=== PATIENT | male | born 1965 | race Caucasian/White ===

== ENCOUNTER 2018-04-15 08:37 | Inpatient (IN) ==
--- NOTE | 2018-04-15 09:02 | Anesthesia Evaluation PreOp ---
Date of Encounter: 04/15/18 Time of Encounter: 09:00 - Past History Planned Operation: left thoracotomy with LLLobectomy Cardiac History: Denies any Significant Hx Pulmonary History: Denies Any Significant HX GEOSPATIAL SCIENTIST History: Other (chemo induced neuropathy) Other Medical History: Other (metatstatic colon cancer) Anesthesia History: No Prior Anesthetic Complications, Past Anesthesia (oral sx, cleft lip repair, right SANTANA, Hydrocele repair, colon resection, colostomy reversal, LLL wedge resection) Alcohol Use: rarely Drug use: none Medications and Allergies Allergy/AdvReac Type Severity Reaction Status Date / Time No Known Allergies Allergy Verified 04/15/18 09:07 - Meds/Allergy Pre-op Review Medications Reviewed: Yes Allergies Reviewed: Yes Beta Blockers on Current Med List: No Anesthesia Results - Labs Laboratory Tests 03/12/18 03/12/18 09:33 09:33 Hgb 14.0 Hct 41.8 Plt Count 195 Sodium 137 Potassium 4.1 BUN 15 Creatinine 0.93 - Imaging Additional studies: PET scan: IMPRESSION: Left hilar/infrahilar mass is hypermetabolic, concerning for lung malignancy. No gross findings of metastatic disease. Moderate activity about the margin of orthopedic hardware within the proximal right femur, likely inflammatory in the absence of clinical signs or symptoms of infection. [facility]: normal lung volumes, normal spirometry, no post bronchodilator response, normal diffusion capacity Anesthesia Exam Weight: 112kg NPO (# of Hours): 8 - HEENT Pupil (Motor): EOMI Mallampati: II Teeth: Normal Oral Opening: Greater than 3 (has upper lip minimal deformity from clet lip sx) - GEOSPATIAL SCIENTIST LOC: Oriented GEOSPATIAL SCIENTIST Motor: Normal RUE, Normal LUE, Normal RLE, Normal LLE, Normal Face GEOSPATIAL SCIENTIST Sensory: Normal: RUE, LUE, RLE, LLE, Face - Cardiac Rhythm: Regular Murmur: None - Pulmonary Breath Sounds: bilateral Clear Respiratory Effort: Symmetrical Anesthesia Assess/Plan ASA Score: 3 Level of consciousness: Cooperative, Oriented, Tranquil Anesthetic Plan: General Monitoring Plan: Standard Monitors Recovery Plan: PACU (agrees to GA)
[2018-04-15] MEDS ORDERED: Gabapentin 300 MG CAPSULE PO ONE (09:14)
[2018-04-15] MEDS ORDERED: Celecoxib 100 MG CAPSULE PO SCH (09:15)
[2018-04-15] MEDS ORDERED: CeFAZolin Syr 2,000MG/20 ML 2,000 MG/20 ML SYRINGE IVPB ONE (09:23)
[2018-04-15] MEDS ORDERED: Ringers Solution, Lactated 1,000 ML IVC SCH (09:30)
--- NOTE | 2018-04-15 09:51 | History & Physical Report ---
Date of Encounter: 04/15/18 Time of Encounter: 09:50 24 Hour HP Update - Instructions Instructions: If the History and Physical is less than 30 days old and was completed prior to A.M. admission and or procedure and has NOT been updated on calendar day of procedure please complete this update prior to performing procedure. - Update Patient reports changes in Medical Condition: No Changes in examination, assessment, or condition: No Changes in Medication: No Preop tests/diagnostics Reviewed: Yes Pre-Op MRSA Screen: Negative Surgery Remains Indicated: Yes Consent for Planned Operative Procedure(s) Verified: Yes - Pre-Operative Checklist Preoperative Checklist Indicated: Yes Prophylactic Antibiotic Ordered: Yes Home Medications Include Beta Pat: Yes Beta Pat Taken Today (Day of Surgery): No Beta Pat Taken Yesterday (Day Prior to Surgery): No Is VTE Prophylaxis Indicated?: Yes (knee high)
--- NOTE | 2018-04-15 13:13 | Operative Note ---
Date of procedure: 04/15/18 Pre-op diagnosis: metastatic colon cancer to the left lung Post-op diagnosis: same Procedure: bronchoscopy, left thoracotomy pneumonectomy, mediastinal lymph node dissection Complications: none Anesthesia: GETA Local Anesthetics: 0.5% Sensorcaine HCL SubQ (cc) Surgeon: Jose Perea Was there an assistant sales manager present: No Estimated blood loss (cc): 150 Specimen: left lung, node 10 Condition: stable Disposition: ICU Procedure in Detail: The patient was brought to the operating room and placed on the operating room table in the supine position. After undergoing general anesthesia a diagnostic bronchoscopy was performed by me and patient for the first time for his recurrent metastatic colon cancer to the left lung. There appeared to be membranous tracheal involvement at the left lower lobe bronchus. Patient was then placed on the operating room table in the right lateral decubitus position with care to pad all pressure points. Perioperative antibiotics and venous thrombosis prophylaxis performed. A muscle sparing thoracotomy was performed. There were dense adhesions within the chest from his previous operation. These were taken down with the Bovie cautery. The hilum was mobilized. The large metastatic mass was invading the left lower lobe vein as well as the distal left mainstem bronchus. The upper lobe vein, main pulmonary artery, lower lobe vein were taken in sequence with the stapler. The hilum was fully mobilized and a stapler fired across the proximal left mainstem bronchus after removing the endotracheal tube into the distal trachea. Lymph node dissection was performed, para paravertebral nerve blocks performed, and a 28-Azerbaijani chest tube placed. The intercostal space closed with #1 Vicryl the ausculatory triangle closed with #1 Vicryl a flat Jerome-Franco drain placed through a separate skin incision is placed between the 2 muscle bellies. Secured into place with a 2-0 silk suture. The latissimus dorsi muscle was tacked to the deep dermis with a 0 Vicryl, superficial dermis closed with 0 Vicryl, skin closed with a 4-0 Monocryl subcuticular stitch. Sterile dressings were applied. The patient was extubated and taken to the intensive care unit.
[2018-04-15] MEDS ORDERED: *HR* HYDROmorphone 2 MG/ML SYRINGE IVP ONE ×2 (13:24→13:36)
[2018-04-15] MEDS ORDERED: *HR* HYDROmorphone 20 MG/20 ML PCA IVC SCH (13:36)
[2018-04-15] MEDS ORDERED: Naloxone 0.4 MG/ML INJ IVP PRN ×2 (13:36)
[2018-04-15] MEDS: 0.9 % Sodium Chloride 1,000 ML IVC SCH (13:47)
[2018-04-15] MEDS ORDERED: Gabapentin 300 MG CAPSULE PO SCH (15:00)
[2018-04-15] MEDS: Gabapentin 300 MG CAPSULE PO SCH ×2 (15:55→20:12)
[2018-04-15] MEDS: Albuterol 2.5 MG/3 ML NEBULIZER IH SCH ×2 (16:22→19:40)
[2018-04-15] MEDS ORDERED: Ondansetron 4 MG/2 ML VIAL IVP PRN (16:44)
[2018-04-15] MEDS: Ketorolac 15 MG/ML VIAL IVP SCH ×2 (17:58→23:11)
[2018-04-15] MEDS: Metoprolol XL (24 HR) Succ 25 MG TAB.ER.24H PO SCH (18:02)
[2018-04-16] MEDS: Albuterol 2.5 MG/3 ML NEBULIZER IH SCH ×7 (00:25→23:20)
[2018-04-16] MEDS: 0.9 % Sodium Chloride 1,000 ML IVC SCH ×2 (02:56→15:35)
[2018-04-16 04:34] LABS: Basophils % 0.1 %; Hematocrit 37.4 % (37.5-50.1); Hemoglobin 12.4 g/dL (12.9-16.9); Immature Granulocytes % 0.4 % (0-4); Lymphocytes # 0.8 K/mcL (0.6-4.6); Lymphocytes % 7.2 %; Mean Corpuscular HGB Conc 33.2 g/dL (31.6-35.5); Mean Corpuscular Volume 90.3 fL (83.0-100.0); Mean Platelet Volume 9.4 fL (9.4-12.4); Monocytes # 0.9 K/mcL (0.0-1.3); Monocytes % 8.3 %; Neutrophils # 8.9 K/mcL (1.6-8.9); Platelet Count 183 K/mcL (140-400); Red Blood Count 4.14 M/mcL (4.19-5.50); Red Cell Distribution Width 12.8 % (11.5-14.5)
[2018-04-16 05:01] LABS: BUN/Creatinine Ratio 16 (6-26); Blood Urea Nitrogen 14 mg/dL (6-20); Calcium 8.6 mg/dL (8.6-10.3); Carbon Dioxide 28 mEq/L (23-29); Chloride 102 mEq/L (98-107); Glucose 151 mg/dL (70-105); Magnesium 2.1 mg/dL (1.6-2.6); Osmolality,Calculated 279 (280-300); Phosphorous 3.3 mg/dL (2.7-4.5); Potassium 4.5 mEq/L (3.5-5.1); Sodium 133 mEq/L (136-145); eGFR For Non-African Americans > 60 (> 60)
[2018-04-16] MEDS: Ketorolac 15 MG/ML VIAL IVP SCH ×4 (06:53→22:56)
--- NOTE | 2018-04-16 08:58 | Cardiothoracic Progress Note ---
Date of Encounter: 04/16/18 Time of Encounter: 08:55 - Assessment and plan (1) Secondary malignant neoplasm of left lung Current Visit: Yes Status: Acute labs and xray reviwed with patient and family. will remove chest tube. give albumin. tx to stepdown. labs and xray in am - Subjective Procedure(s) Performed: postoperatvie day 1 left pneumonectomy Interval history: episode of nausea resolved. Vital Signs, Last 4 Hours Temp Pulse Resp BP Pulse Ox 04/16/18 07:26 16 99 04/16/18 07:00 97.5 F L 98 16 105/78 100 04/16/18 06:00 84 14 95/69 100 04/16/18 05:00 84 16 98/68 99 Oxgyen Flow Rate Oxygen Flow Rate (LPM) 2 Clinical Data, last 8 Hours Output, Chest Tube Drainage 0 Amount [Left Mid-Axillary Chest #1] Output, Chest Tube Drainage 0 Amount [Left Mid-Axillary Chest #1] Weight 04/14/18 04/15/18 04/16/18 23:59 23:59 23:59 Weight 112.491 kg - Physical Examination General: Conversant, No Apparent Distress HEENT: Atraumatic, Normocephaly Cardiac: Reg Rate and Rhythm, Normal S1 and S2, No Murmur Lungs: Normal Breath Sounds Neuro: Alert and responsive, No focal deficits noted, Cranial nerves intact Abdomen: Soft, Non-tender - Labs 04/16/18 03:46 04/16/18 03:46 Lab Results, Last 24 hours 04/16/18 04/16/18 03:46 03:46 WBC 10.6 Hgb 12.4 L Hct 37.4 L Plt Count 183 Sodium 133 L Potassium 4.5 Chloride 102 Carbon Dioxide 28 BUN 14 Creatinine 0.90 Glucose 151 H Calcium 8.6 Magnesium 2.1 - Imaging Chest Xray: image reviewed - VTE Documentation of Mechanical Device: Intermittent pneumatic compression device Consult Discharge Plan - Plan Referrals: Jose Perea MD [Partnered Physician] - (Sent web request on 04-15-18 @ [phone]) NONE,PCP [Primary Care Provider] -
[2018-04-16] MEDS ORDERED: Cholecalciferol (D-3) 1,000 UNIT TABLET PO SCH (09:00)
[2018-04-16] MEDS ORDERED: Multivit/Ca/Min/Fe/FA 1 TAB TABLET PO SCH (09:00)
[2018-04-16] MEDS: Gabapentin 300 MG CAPSULE PO SCH ×3 (09:16→20:39)
[2018-04-16] MEDS: Metoprolol XL (24 HR) Succ 25 MG TAB.ER.24H PO SCH (09:17)
[2018-04-16] MEDS ORDERED: Naloxone 0.4 MG/ML INJ IVP PRN (10:34)
[2018-04-16] MEDS ORDERED: Ondansetron 4 MG/2 ML VIAL IVP PRN (10:34)
[2018-04-16] MEDS: *HR* HYDROmorphone 20 MG/20 ML PCA IVC SCH (15:35)
[2018-04-17] MEDS: 0.9 % Sodium Chloride 1,000 ML IVC SCH ×3 (01:53→20:24)
[2018-04-17] MEDS: Albuterol 2.5 MG/3 ML NEBULIZER IH SCH ×6 (04:42→23:25)
[2018-04-17 04:58] LABS: Basophils % 0.3 %; Eosinophils # 0.2 K/mcL (0.0-0.6); Eosinophils % 1.4 %; Hematocrit 35.6 % (37.5-50.1); Hemoglobin 11.9 g/dL (12.9-16.9); Immature Granulocytes % 0.4 % (0-4); Lymphocytes # 1.4 K/mcL (0.6-4.6); Lymphocytes % 12.7 %; Mean Corpuscular HGB Conc 33.4 g/dL (31.6-35.5); Mean Corpuscular Hemoglobin 30.2 pg (28.0-33.3); Mean Corpuscular Volume 90.4 fL (83.0-100.0); Mean Platelet Volume 9.3 fL (9.4-12.4); Monocytes # 0.7 K/mcL (0.0-1.3); Monocytes % 6.2 %; Neutrophils # 8.6 K/mcL (1.6-8.9); Platelet Count 191 K/mcL (140-400); Red Blood Count 3.94 M/mcL (4.19-5.50); Red Cell Distribution Width 13.2 % (11.5-14.5)
[2018-04-17 05:22] LABS: BUN/Creatinine Ratio 17 (6-26); Blood Urea Nitrogen 15 mg/dL (6-20); Carbon Dioxide 26 mEq/L (23-29); Chloride 104 mEq/L (98-107); Glucose 126 mg/dL (70-105); Magnesium 2.2 mg/dL (1.6-2.6); Osmolality,Calculated 286 (280-300); Phosphorous 2.6 mg/dL (2.7-4.5); Potassium 4.2 mEq/L (3.5-5.1); Sodium 137 mEq/L (136-145); eGFR For Non-African Americans > 60 (> 60)
[2018-04-17] MEDS: Ketorolac 15 MG/ML VIAL IVP SCH ×4 (05:39→23:28)
[2018-04-17] MEDS: Cholecalciferol (D-3) 1,000 UNIT TABLET PO SCH (08:00)
[2018-04-17] MEDS: Gabapentin 300 MG CAPSULE PO SCH ×3 (08:01→21:17)
[2018-04-17] MEDS: Metoprolol XL (24 HR) Succ 25 MG TAB.ER.24H PO SCH (08:01)
[2018-04-17] MEDS: Multivit/Ca/Min/Fe/FA 1 TAB TABLET PO SCH (08:01)
--- NOTE | 2018-04-17 08:32 | Cardiothoracic Progress Note ---
Date of Encounter: 04/17/18 Time of Encounter: 08:30 - Assessment and plan (1) Secondary malignant neoplasm of left lung Current Visit: Yes Status: Acute removed sandi. replace po. start miralax - Subjective Interval history: feels a little constipated Vital Signs, Last 4 Hours Temp Pulse Resp BP Pulse Ox 04/17/18 08:15 100 04/17/18 08:00 100 14 130/87 100 04/17/18 07:00 97.7 F 103 14 129/84 95 04/17/18 05:14 92 04/17/18 04:42 12 97 Oxgyen Flow Rate Oxygen Flow Rate (LPM) 2 Clinical Data, last 8 Hours Output, Urine Amount 750 Weight 04/15/18 04/16/18 04/17/18 23:59 23:59 23:59 Weight 112.491 kg 115 kg - Physical Examination General: Conversant, No Apparent Distress HEENT: Atraumatic, Normocephaly Cardiac: Reg Rate and Rhythm, Normal S1 and S2, No Murmur Incision: No signs of infection, Dry/intact dressing Lungs: Normal Breath Sounds Neuro: Alert and responsive, No focal deficits noted - Labs 04/17/18 04:24 04/17/18 04:24 Lab Results, Last 24 hours 04/17/18 04/17/18 04:24 04:24 WBC 10.8 Hgb 11.9 L Hct 35.6 L Plt Count 191 Sodium 137 Potassium 4.2 Chloride 104 Carbon Dioxide 26 BUN 15 Creatinine 0.90 Glucose 126 H Calcium 9.0 Magnesium 2.2 - VTE Documentation of Mechanical Device: Intermittent pneumatic compression device Consult Discharge Plan - Plan Referrals: Jose Perea MD [Partnered Physician] - (Sent web request on 04-15-18 @ [phone]) NONE,PCP [Primary Care Provider] -
[2018-04-17] MEDS: *HR* HYDROmorphone 20 MG/20 ML PCA IVC SCH (20:24)
[2018-04-18] MEDS: 0.9 % Sodium Chloride 1,000 ML IVC SCH (02:27)
[2018-04-18] MEDS: Albuterol 2.5 MG/3 ML NEBULIZER IH SCH ×2 (04:21→07:59)
[2018-04-18 05:51] LABS: Basophils % 0.4 %; Eosinophils # 0.2 K/mcL (0.0-0.6); Eosinophils % 2.2 %; Hematocrit 32.5 % (37.5-50.1); Hemoglobin 10.9 g/dL (12.9-16.9); Immature Granulocytes % 0.4 % (0-4); Lymphocytes # 1.3 K/mcL (0.6-4.6); Lymphocytes % 15.4 %; Mean Corpuscular HGB Conc 33.5 g/dL (31.6-35.5); Mean Corpuscular Hemoglobin 29.9 pg (28.0-33.3); Mean Corpuscular Volume 89.3 fL (83.0-100.0); Mean Platelet Volume 9.1 fL (9.4-12.4); Monocytes # 0.6 K/mcL (0.0-1.3); Monocytes % 6.7 %; Neutrophils # 6.1 K/mcL (1.6-8.9); Platelet Count 164 K/mcL (140-400); Red Blood Count 3.64 M/mcL (4.19-5.50); Red Cell Distribution Width 13.2 % (11.5-14.5); Segmented Neutrophils % 74.9 %
[2018-04-18 06:11] LABS: BUN/Creatinine Ratio 13 (6-26); Blood Urea Nitrogen 11 mg/dL (6-20); Calcium 8.9 mg/dL (8.6-10.3); Carbon Dioxide 28 mEq/L (23-29); Chloride 105 mEq/L (98-107); Glucose 130 mg/dL (70-105); Osmolality,Calculated 289 (280-300); Phosphorous 3.2 mg/dL (2.7-4.5); Potassium 4.2 mEq/L (3.5-5.1); Sodium 139 mEq/L (136-145); eGFR For Non-African Americans > 60 (> 60)
[2018-04-18 06:36] VITALS: BP 136/95
[2018-04-18] MEDS: Ketorolac 15 MG/ML VIAL IVP SCH (06:37)
[2018-04-18] MEDS: Metoprolol XL (24 HR) Succ 25 MG TAB.ER.24H PO SCH (08:03)
[2018-04-18] MEDS: Cholecalciferol (D-3) 1,000 UNIT TABLET PO SCH (08:04)
[2018-04-18] MEDS: Multivit/Ca/Min/Fe/FA 1 TAB TABLET PO SCH (08:04)
[2018-04-18] MEDS: Gabapentin 300 MG CAPSULE PO SCH (08:04)
[2018-04-18] MEDS ORDERED: *HR* HYDROcodone/Acet 5/325 mg TABLET PO PRN (09:30)
--- NOTE | 2018-04-18 09:34 | Discharge Summary ---
Orders not resulted at time of discharge: Pending orders 04/15/18 12:11 Surgical Pathology [PTH] Stat Date of Encounter: 04/18/18 Time of Encounter: 09:32 - Discharge Diagnosis (1) Secondary malignant neoplasm of left lung Priority: Primary Status: Acute - Hospital Course Hospital course: Mr. Ramos is a 52 year old male presented to the hospital with colon metastasis to the left hilum and underwent a bronchoscopy, left thoracotomy pneumonectomy and lymph node dissection. His postoperative course was unremarkable. - Time Spent with Patient Total time spent providing and/or coordinating discharge services: - Discharge Medications Prescriptions: HYDROcodone/Acet 5/325 mg [[place] 5-325 mg] 1 tab PO Q4HR PRN 30 Days #120 tablet PRN Reason: Pain Gabapentin [Neurontin] 300 mg PO TID 60 Days #90 capsule Metoprolol XL (24 HR) Succ [Toprol Xl] 25 mg PO DAILY 60 Days #60 tab.er.24h Home Medications: Amitriptyline [Elavil] 50 mg PO QAM 04/15/18 [History] Amitriptyline [Elavil] 100 mg PO HS 04/15/18 [History] Cholecalciferol (D-3) [Vitamin D] 1,000 unit PO DAILY 04/15/18 [History] Multivitamin [One-Daily Multi-Vitamin] 1 tab PO DAILY 04/15/18 [History] Zolpidem [Ambien] 5 mg PO HS PRN 04/15/18 [History] Gabapentin [Neurontin] 300 mg PO TID 60 Days #90 capsule 04/18/18 [Rx] HYDROcodone/Acet 5/325 mg [[place] 5-325 mg] 1 tab PO Q4HR PRN 30 Days #120 tablet 04/18/18 [Rx] Metoprolol XL (24 HR) Succ [Toprol Xl] 25 mg PO DAILY 60 Days #60 tab.er.24h 04/18/18 [Rx] Allergies/Adverse Reactions: Allergy/AdvReac Type Severity Reaction Status Date / Time No Known Allergies Allergy Verified 04/15/18 09:07 Date of admission: 04/15/18 12:58 Primary care physician: PCP NONE Procedure(s) Performed: bronchoscopy and left thoracotomy pneumonectomy and mediastinal lymph node dissection. uneventful postoperative recovery Discharging clinician: Jose Perea Anticipated date of discharge: 04/18/18 Physical Examination Vital Signs, Last 4 Hours Temp Pulse Resp BP Pulse Ox 04/18/18 07:59 16 136/95 97 04/18/18 07:50 97.8 F 04/18/18 07:05 84 04/18/18 07:00 88 18 136/95 95 04/18/18 06:00 94 16 136/95 100 General: Conversant, No Apparent Distress HEENT: Atraumatic, Normocephaly Cardiac: Reg Rate and Rhythm, Normal S1 and S2, No Murmur Lungs: Normal Breath Sounds Neuro: Alert and responsive, No focal deficits noted Vascular: Normal capillary refill Abdomen: Soft, Non-tender, Other (bm x 45 yesterday ) Skin: No rashes noted on visualized skin - Patient Status Disposition: Home, Self-Care Condition: Good Functional capacity at discharge: independent ambulation Overall status at discharge: patient is progressing back to baseline - Discharge Instructions Follow Up With: Jose Perea MD [Partnered Physician] - (Sent web request on 04-15-18 @ [phone]) NONE,PCP [Primary Care Provider] - - Diet and Activity Activity: no driving for four weeks, no lifting greater than 10 pounds for eight weeks, increase activity as tolerated (no airline travel for 1 month ) Diet: regular diet Open [facility] Registry Beta Pat Cont/Prescribed at DC: Yes - VTE Documentation of Mechanical Device: Intermittent pneumatic compression device
== END 2018-04-18 11:05 | disposition home or self-care (01) | DRG 164 ==
LOC: SAMDAY 08:37 → ICNU 12:58
PROVIDERS: ADMIT Thoracic Surgery (Cardiothoracic Vascular Surgery); ATTEND Thoracic Surgery (Cardiothoracic Vascular Surgery)

== ENCOUNTER 2018-08-11 14:10 | Inpatient (IN) ==
--- NOTE | 2018-08-11 14:39 | Emergency Department Note ---
Disposition Clinical Impression: Colon cancer metastasized to lung, H/O pneumonectomy Dyspnea Qualifiers: Dyspnea type: dyspnea on exertion Qualified Code(s): R06.09 - Other forms of dyspnea Pulmonary emboli Qualifiers: Pulmonary embolism type: other Chronicity: acute Acute cor pulmonale presence: without acute cor pulmonale Qualified Code(s): I26.99 - Other pulmonary embolism without acute cor pulmonale Disposition: Admitted As Inpatient Condition: Fair General Adult HPI - General Stated complaint: PE, Cancer center sent Time Seen by Provider: 08/11/18 14:19 Nursing Notes Reviewed: Yes Vital Signs Reviewed: Yes - History of Present Illness HPI Narrative: 53 yo M who presents from [facility] due to positive CTA chest for pulmonary embolism. The patient has a history of colon cancer with metastasis to his left lung. He is status post left pneumonectomy. Over the last three weeks he has had increasing shortness of breath which has been with only minimal effort. The patient denies any bilateral lower extremity. He states he is currently undergoing chemotherapy. The patient otherwise denies any nausea, vomiting, diarrhea, hematochezia, melena, abdominal pain. The patient was seen at [facility] had elevated d-dimer and therefore they obtained chest CTA which showed pulmonary emboli within the right lobe and he is status post left pneumonectomy. - Related Data Home Medications Medication Instructions Recorded Confirmed RX: Amitriptyline [Elavil] 50 mg PO QAM 04/15/18 08/11/18 RX: Amitriptyline [Elavil] 100 mg PO HS 04/15/18 08/11/18 RX: Albuterol Sulfate [Albuterol 2 puff IH Q6H PRN 05/16/18 08/11/18 Inhaler] Metoprolol Succinate [Toprol Xl] 25 mg PO DAILY 08/11/18 08/11/18 Zolpidem [Ambien] 5 mg PO HS 08/11/18 08/11/18 Previous Rx's Medication Instructions Recorded RX: Omeprazole 20 mg PO DAILY #30 tab. 05/07/18 Prochlorperazine Maleate 10 mg PO Q6HR PRN #30 tablet 06/04/18 [Compazine] RX: Ondansetron ODT [Zofran ODT] 4 mg SL Q6HR #20 tabairam 06/04/18 Dexamethasone [Decadron] 1 tab PO AD #30 tab 07/26/18 Mirtazapine [Remeron] 15 mg PO HS #30 tablet 08/05/18 RX: Capecitabine [Xeloda] 3 tab PO BID #84 tablet 08/09/18 Enoxaparin [Lovenox] 120 mg SQ Q12HR #60 syr 08/12/18 Rivaroxaban [Xarelto] 1 dose PO AD 30 Days pack 08/12/18 Allergies Allergy/AdvReac Type Severity Reaction Status Date / Time Medipore Allergy Rash Uncoded 08/11/18 10:50 Review of Systems: ROS per history of present illness, all other systems reviewed and negative or normal. All systems ED: reviewed and negative except as stated. Review of Systems: As Per HPI Past Medical History - Past Medical History Medical history: Reports: arthritis, cancer (Colon cancer with lung metastases), malignancy Surgical history: Reports: colectomy, colostomy, hip replacement Psychiatric history: Reports: PTSD - Social History Smoking Status: Never smoker Smokeless Tobacco Status: No Alcohol use: Reports: rarely Drug use: Reports: none Physical Exam General: Conversant. No apparent distress. Follow commands. Appears stated age. Neck: No JVD. Trachea midline. Neck supple. Eyes: PERRL. No scleral icterus. HENT: Normocephalic and atraumatic. Moist mucus membranes. Cardiovascular: tachycardic, regular rhythm. Normal S1 and S2. No murmurs appreciated. Normal capillary refill. Extremities well perfused with 2+ distal pulses bilaterally. No edema. Pulmonary: Normal and equal breath sounds bilaterally, anteriorly and posteriorly on the right. No breath sounds on the left s/p pnemonectomy. No wheezes, rales, or rhonchi. Not in respiratory distress. Speaks in full sentences. Abdomen: Soft, nondistended, and tontender. No bruits or masses. No guarding. Neuro: Alert and oriented x3. No slurred speech. No focal deficits noted. Skin: No rashes noted on visualized skin. Musculoskeletal: No bony abnormalities visualized. Moves all extremities. Psych: Normal mood. Pleasant. Makes appropriate eye contact. Course Vital Signs Temperature 98.0 F 08/11/18 14:24 Pulse Rate 123 08/11/18 14:24 Respiratory Rate 18 08/11/18 14:24 Blood Pressure 144/94 08/11/18 14:24 O2 Sat by Pulse Oximetry 98 08/11/18 14:24 Temperature 98.0 F 08/11/18 14:24 Pulse Rate 117 08/11/18 15:58 Respiratory Rate 16 08/11/18 15:58 Blood Pressure 147/117 08/11/18 15:58 O2 Sat by Pulse Oximetry 100 08/11/18 15:58 Oxygen Delivery Oxygen Delivery Room Air Medical Decision Making - MDM Narrative Medical decision making narrative: 53-year-old male with colon cancer status post pneumonectomy on the left who is presenting with right-sided pulmonary embolism. The patient is currently undergoing chemotherapy. On exam the patient is tachycardic but otherwise not hypoxic. EKG shows no evidence of right heart strain. He is otherwise well- appearing. Did obtain PTT/INR as well as PTT. We will place the patient on heparin drip and admitted to the hospital for echocardiogram and likely Doppler ultrasounds. Discussed case with on-call hospitalist Dr. Duran who agrees with plan for admission and accepts the patient to the inpatient service. Requests 2N. Patient agrees with and understands course of treatment plan including plan for admission. All questions answered. - Medical Records Medical records reviewed: Yes I reviewed the patient's medical records. - Lab Data Lab results reviewed: Yes I reviewed the patient's lab results. Result diagrams: 08/12/18 05:53 Lab Results 08/11/18 08/11/18 Range/Units 14:37 15:28 PT 11.3 (9.4-12.1) Seconds INR 1.0 APTT 25.2 L (26.0-36.0) Seconds Heparin Anti-Xa, Unfract 0.00 L (0.30-0.70) IU/mL - Radiology Data Radiology results reviewed: Yes I reviewed the patient's radiology results. Lungs/pleura: The patient is status post left pneumonectomy with postsurgical changes evident. The remaining central airways are patent. The large fluid collection is seen within the left hemithorax on the prior study of 05/15/2018 has near completely resolved with a mild amount of postoperative fluid noted within the left pneumonectomy bed. There is new fat stranding throughout the residual left hemithorax, likely postsurgical. There is associated leftward mediastinal shift. The right lung is clear. There is no evidence of a pneumothorax or pleural effusion. There is an approximate 12 x 7 mm triangular density noted within the periphery of the superior segment of the right lower lobe, just posterior to the right major fissure, image 102, new from the prior study of 05/15/2018. This most likely represents a mild focus of atelectasis. No additional suspicious pulmonary nodule or mass is identified. Upper Abdomen: The visualized adrenal glands are unremarkable. There is diffuse hepatic steatosis. The remainder of the upper abdomen is unremarkable. Soft Tissues/Bones: There is degenerative change throughout the thoracic spine. No osteolytic or osteoblastic lesion is seen. CT/CT angio chest IMPRESSION: 1. Moderate acute pulmonary emboli throughout the right lung, as detailed above. 2. Patient status post left pneumonectomy with postoperative changes within left hemithorax, as detailed above. However, the previously identified large fluid collection with left hemithorax has near completely resolved with only mild left-sided pleural fluid remaining. 3. There is a 12 x 7 mm nodular density within the superior segment right lower lobe, new from the prior study. This is most likely a small focus of atelectasis. However, given the patient's high risk status, continued imaging follow-up of this nodular opacity is recommended to ensure its resolution. Follow-up recommendations are detailed below. 4. Stable small pericardial effusion. - EKG Data EKG #1 EKG attestation: Yes I reviewed and interpreted this EKG. EKG results narrative: Sinus tachycardia rate of 113. No ischemic or signs of heart strain. Normal axis. No change from previous on 05/15/18. Attestation Statement - Attestation Attestation: I examined this patient and my medical decision-making was reviewed with the Resident Physician. I agree with the documented findings, disposition and treatment plan as described except to the extent set forth below.
--- NOTE | 2018-08-11 14:44 | Emergency Department Note ---
Disposition Clinical Impression: Dyspnea, Pulmonary emboli Disposition: Admitted As Inpatient Condition: Fair [facility]: [facility] [Primary Care Provider[facility] - General Adult HPI - General Stated complaint: PE, Cancer center sent Time Seen by Provider: 08/11/18 14:19 - History of Present Illness HPI Narrative: I have seen this patient with the resident physician, I have personally evaluated this patient. I had reviewed the chart and document dictation by the resident physician and M in agreement with the information documented by the resident physician. Please see documentation by the resident physician for complete chart including past medical history, family medical history, review of systems, current history and physical and laboratory and imaging studies. I was present for all procedures, provided direct supervision for all procedures, was present for the entirety of all procedures and carotid direct guidance during the procedures. Please see documentation by the resident physician for any procedures performed. Patient presented to the emergency department with chief complaint of pulmonary moles. He has been feeling her breath for 2 weeks he followed up with his cancer doctor had an outpatient CAT scan that shows multiple blood clots in his right lung. Moderate clot burden. The patient is status post left-sided pneumonectomy. This is related to metastatic colon cancer. Denies fevers chills or chest pain denies any other acute concerns. Basic laboratory studies had already been ordered as an outpatient including a CBC and renal panel were normal. Patient was hemodynamically normal no hypoxia, no hypotension, heart rate was roughly 110 on the monitor. EKG coags were ordered he was started on a heparin drip and bolus for pulmonary embolism. He is nontoxic in appearance alert awake and talking, and was provided education about pulmonary embolism and about need for admission he is agreeable to admission. Patient was admitted to the hospital for further management. - Related Data Home Medications Medication Instructions Recorded Confirmed Amitriptyline [Elavil] 50 mg PO QAM 04/15/18 08/11/18 Amitriptyline [Elavil] 100 mg PO HS 04/15/18 08/11/18 Cholecalciferol (D-3) [Vitamin D] 1,000 unit PO DAILY 04/15/18 08/11/18 Multivitamin [One-Daily 1 tab PO DAILY 04/15/18 08/11/18 Multi-Vitamin] Albuterol Sulfate [Albuterol 2 puff IH Q6H PRN 05/16/18 08/11/18 Inhaler] Gabapentin [Neurontin] 300 mg PO TID PRN 05/18/18 08/11/18 HYDROcodone/Acet 5/325 mg [Alpha 1 tab PO Q4H PRN 05/18/18 08/11/18 5-325 mg] Previous Rx's Medication Instructions Recorded Omeprazole 20 mg PO DAILY #30 tab.rap. 05/07/18 Loperamide [Imodium] 2 mg PO AD PRN #30 capsule 06/04/18 Ondansetron ODT [Zofran ODT] 4 mg SL Q6HR #20 tab.rapdis 06/04/18 Prochlorperazine Maleate 10 mg PO Q6HR PRN #30 tablet 06/04/18 [Compazine] Magic Mouthwash [Magic Mouthwash 10 ml PO QID PRN #240 ml 07/15/18 BLM] Dexamethasone [Decadron] 1 tab PO AD #30 tab 07/26/18 Mirtazapine [Remeron] 15 mg PO HS #30 tablet 08/05/18 Capecitabine [Xeloda] 3 tab PO BID #84 tablet 08/09/18 Allergies Allergy/AdvReac Type Severity Reaction Status Date / Time Medipore Allergy Rash Uncoded 08/11/18 10:50 Past Medical History - Past Medical History Medical history: Reports: arthritis, cancer (Colon cancer with lung metastases), malignancy Surgical history: Reports: colectomy, colostomy, hip replacement Psychiatric history: Reports: PTSD - Social History Smoking Status: Never smoker Smokeless Tobacco Status: No Alcohol use: Reports: rarely Drug use: Reports: none
[2018-08-11] MEDS ORDERED: *HR* Heparin 5,000 UNIT/ML VIAL IVP PRN ×2 (14:47)
[2018-08-11] MEDS ORDERED: *HR* Heparin 5,000 UNIT/ML VIAL IVP ONE (14:47)
[2018-08-11] MEDS ORDERED: Heparin 25,000 UNIT/250 ML D5W 25,000 UNIT/250 ML IV.SOLN IVC SCH (15:00)
[2018-08-11 15:02] LABS: Prothrombin Time 11.3 Seconds (9.4-12.1)
[2018-08-11 15:05] LABS: Activated Partial Thrombo Time 25.2 Seconds (26.0-36.0)
[2018-08-11] MEDS ORDERED: traMADol 50 MG TABLET PO PRN (16:30)
[2018-08-11] MEDS ORDERED: Acetaminophen 325 MG TABLET PO PRN (16:30)
[2018-08-11] MEDS ORDERED: Naloxone 0.4 MG/ML INJ IVP PRN (16:30)
[2018-08-11] MEDS ORDERED: *HR* OxyCODONE Immed Rel 5 MG TABLET PO PRN (16:30)
[2018-08-11] MEDS ORDERED: Gabapentin 300 MG CAPSULE PO PRN (16:34)
--- NOTE | 2018-08-11 16:38 | Internal Med History&Physical ---
<Dominik Kitchen - Last Filed: 08/11/18 16:36> Date of Encounter: 08/11/18 Time of Encounter: 16:36 Internal Medicine - H&P: HPI Chief complaint: Pulmonary embolism Admitted From: Emergency Dept Plans for Post Hospital Care: Home History of present illness: Mr. Ramos is a 53 year old male with history of metastatic colon cancer presented with chief complaint of shortness of breath. Patient has had shortness of breath for 2 weeks which worsens with exertion. He denies coughing, sputum production, fevers, chills. He presented to his oncologist's office today and a d-dimer sent out which is elevated. He then underwent CTA which showed moderate acute pulmonary emboli throughout the right lung. Patient was sent to the ED for further treatment for pulmonary embolism. He was started on heparin drip. He was not an S4 distress and did not require oxygen. He did report to me that he has had bilateral lower extremity edema in the past few days as well as pain in the right calf more than left. He denies any history of blood clots in the past. Patient's last chemotherapy was last Thursday. Patient also complains of headache. Past Med Surg Social Fam HX - Past Medical History Medical history: arthritis, cancer (Colon cancer with lung metastases), malignancy Additional medical history: neuropathy to hands and feet. DDD. Colon Cancer Psychiatric history: PTSD - Past Surgical History Surgical History: colectomy, colostomy, hip replacement Additional surgical history: colostomy reversal. 2 feet bowel removed - Social History Smoking Status: Never smoker Smokeless Tobacco Status: No Alcohol use: rarely Drug use: none - Family History Mother Living Status: Internal Medicine - H&P: Meds Amitriptyline [Elavil] 50 mg PO QAM 04/15/18 [History] Amitriptyline [Elavil] 100 mg PO HS 04/15/18 [History] Omeprazole 20 mg PO DAILY #30 tab 05/07/18 [Rx] Albuterol Sulfate [Albuterol Inhaler] 2 puff IH Q6H PRN 05/16/18 [History] Ondansetron ODT [Zofran ODT] 4 mg SL Q6HR #20 tabairam 06/04/18 [Rx] Prochlorperazine Maleate [Compazine] 10 mg PO Q6HR PRN #30 tablet 06/04/18 [Rx] Dexamethasone [Decadron] 1 tab PO AD #30 tab 07/26/18 [Rx] Mirtazapine [Remeron] 15 mg PO HS #30 tablet 08/05/18 [Rx] Capecitabine [Xeloda] 3 tab PO BID #84 tablet 08/09/18 [Rx] Zolpidem [Ambien] 5 mg PO HS 08/11/18 [History] Allergy/AdvReac Type Severity Reaction Status Date / Time Medipore Allergy Rash Uncoded 08/11/18 10:50 All Systems PM: A 10-system review of systems was performed and is negative for pertinent findings except as documented above in the HPI. Review of systems: Constitutional: Denies fever, chills HEENT: Denies headache, trauma, blurry vision, eye discharge, ear pain, ear discharge neck pain, sore throat, rhinorrhea Heart: Denies chest pain palpitations, LE edema Lungs: Denies shortness of breath cough Abdomen: Denies abdominal pain nausea vomiting diarrhea MSK: Denies back pain, falls, joint pain Kidney: Denies dysuria, hematuria Skin: Denies rash, ulcers Neuro: Reports numbness and tingling that is chronic in his bilateral lower extremities Psych: denies axniety, depression - Constitutional Vitals: Temp Pulse Resp BP Pulse Ox 98.0 F 117 16 147/117 100 08/11/18 14:24 08/11/18 15:58 08/11/18 15:58 08/11/18 15:58 08/11/18 15:58 Exam: General: pleasant, without distress HEENT: Head atraumatic, normocephalic, EOMI, PERRL, absent ear discharge or trauma, Moist Mucous Membranes, uvula midline Neck: nontender to palpation, absent lymphadenopathy, Cardiovascualr: Sinus tachycardia with no murmur, absent gallops or rubs, absent pedal edema, radial pulses 2 out of 4 Lungs: Clear to auscultation bilaterally with left lower lobe sounds diminished, not in respiratory distress Abdomen: Soft nontender, nondistended positive bowel sounds, absent hepatomegaly Skin: warm and dry, absent rash, absent open wounds and nodules MSK: absent clubbing, cyanosis, joints without swelling Neuro: Cranial nerves II through XII intact, UE and LE sensation equal bilate rally, UE and LEstrength 5/5, alert oriented 3, Psych: good insight and judgment - Assessment and Plan (1) Pulmonary emboli Current Visit: Yes Status: Acute Assessment and plan: Patient was found to have right lung PE. Currently is on heparin drip. He is not requiring oxygen and is not in respiratory distress. Plan: We will send scripts for [employer] and [employer] for rubio check. We will check echocardiogram and bilateral lower extremity Dopplers. We order 6 minute oxygen test. Qualifiers: Pulmonary embolism type: other Chronicity: acute Acute cor pulmonale presence: without acute cor pulmonale Qualified Code(s): I26.99 - Other pulmonary embolism without acute cor pulmonale (2) Colon cancer metastasized to lung Current Visit: Yes Status: Acute Assessment and plan: Patient has history of colon cancer that was diagnosed in 2011 and is status post colectomy. Thereafter patient had recurrent colon cancer in August 2015 after him metastasis was found in the left lung and underwent metastatectomy of the left lung. Thereafter patient had recurrent colon cancer in March 2018 in the left hilar and infrahilar region and had a left thoracotomy and pneumonectomy. In March patient was admitted for empyema and underwent left thoracotomy with chest tube placement. Since then patient has been undergoing chemotherapy and radiation. Continue mirtazapine, Phenergan, pain regimen, omeprazole and decadron. (3) DVT prophylaxis Current Visit: Yes Status: Acute Assessment and plan: Heparin. - Time Spent With Patient Total time spent is greater than 50% in coordination of care (as documented) at patient's floor/unit and/or counseling patient: <Cale Osorio - Last Filed: 08/11/18 18:17> Date of Encounter: 08/11/18 Internal Medicine - H&P: HPI History of present illness: Mr. Ramos is a 53 year old male All Systems PM: A 10-system review of systems was performed and is negative for pertinent findings except as documented above in the HPI. - Constitutional Vitals: Temp Pulse Resp BP Pulse Ox 98.0 F 110 16 132/106 97 08/11/18 14:24 08/11/18 17:50 08/11/18 17:50 08/11/18 17:50 08/11/18 17:50 - Time Spent With Patient Total time spent is greater than 50% in coordination of care (as documented) at patient's floor/unit and/or counseling patient: - Attending Attestation I examined this patient and my medical decision-making was reviewed with the Resident Physician. I agree with the documented findings, disposition and treatment plan as described except to the extent set forth below.
[2018-08-11] MEDS ORDERED: Perflutren Lipid Microsphere 1.3 ML in 0.9 % Sodium Chloride 8.7 ML IVP ONE (20:03)
[2018-08-11] MEDS ORDERED: *HR* Metoprolol 5 MG/5 ML VIAL IVP PRN (20:49)
[2018-08-11] MEDS ORDERED: Mirtazapine 15 MG TABLET PO SCH (21:00)
[2018-08-12 06:08] LABS: Hematocrit 40.8 % (37.5-50.1); Hemoglobin 13.3 g/dL (12.9-16.9); Mean Corpuscular HGB Conc 32.6 g/dL (31.6-35.5); Mean Corpuscular Hemoglobin 29.7 pg (28.0-33.3); Mean Corpuscular Volume 91.1 fL (83.0-100.0); Mean Platelet Volume 8.7 fL (9.4-12.4); Platelet Count 140 K/mcL (140-400); Red Blood Count 4.48 M/mcL (4.19-5.50); Red Cell Distribution Width 17.8 % (11.5-14.5)
[2018-08-12] MEDS ORDERED: Metoprolol XL (24 HR) Succ 25 MG TAB.ER.24H PO SCH (09:00)
--- NOTE | 2018-08-12 10:18 | Discharge Summary ---
<Dominik Kitchen - Last Filed: 08/12/18 12:54> Orders not resulted at time of discharge: Pending orders 08/11/18 14:45 EKG [ECG 12 lead ECG] [ECG] Stat 08/12/18 11:40 Heparin anti-factor XA UFH [COAG] Timed Date of Encounter: 08/12/18 Time of Encounter: 11:03 - Discharge Diagnosis (1) Pulmonary emboli Priority: Primary Status: Acute Qualifiers: Pulmonary embolism type: other Chronicity: acute Acute cor pulmonale presence: without acute cor pulmonale Qualified Code(s): I26.99 - Other pulm onary embolism without acute cor pulmonale (2) Colon cancer metastasized to lung Priority: Secondary Status: Chronic (3) DVT prophylaxis Priority: Secondary Status: Acute (4) DVT (deep venous thrombosis) Priority: Secondary Status: Acute Qualifiers: DVT location: lower extremity Affected thrombotic vein of extremity: popliteal Chronicity: chronic Laterality: right Qualified Code(s): I82.531 - Chronic embolism and thrombosis of right popliteal vein Hospital course: Mr. Ramos is a 53 year old male with history of metastatic colon cancer presented with chief complaint of shortness of breath. Patient has had shortne ss of breath for 2 weeks which worsens with exertion. He presented to his oncologist's office today and a d-dimer sent out which is elevated. He then underwent CTA which showed moderate acute pulmonary emboli throughout the right lung. Patient was sent to the ED for further treatment for pulmonary embolism. He was started on heparin drip. He did not require oxygen. He did report to me that he has had bilateral lower extremity edema in the past few days as well as pain in the right calf more than left. LE dopplers revealed a RLE DVT. Echo showed LVEF EF 65-70 without wall motion or valvular abnormalities with small pericardial effusion without signs of tamponade without RV strain. Oncology recommended xaralto which the patient will start on today and will be discharged with a xaralto starter pack. Discharge discussed with: patient, family - Time Spent with Patient Total time spent providing and/or coordinating discharge services: - Discharge Medications Prescriptions: New Rivaroxaban [Xarelto] 1 dose PO AD 30 Days pack Continue Amitriptyline [Elavil] 100 mg PO HS Amitriptyline [Elavil] 50 mg PO QAM Omeprazole 20 mg PO DAILY #30 tab Albuterol Sulfate [Albuterol Inhaler] 2 puff IH Q6H PRN PRN Reason: Shortness Of Breath Ondansetron ODT [Zofran ODT] 4 mg SL Q6HR #20 tab.stella Prochlorperazine Maleate [Compazine] 10 mg PO Q6HR PRN #30 tablet PRN Reason: Nausea Dexamethasone [Decadron] 1 tab PO AD #30 tab Mirtazapine [Remeron] 15 mg PO HS #30 tablet Capecitabine [Xeloda] 3 tab PO BID #84 tablet Zolpidem [Ambien] 5 mg PO HS Metoprolol Succinate [Toprol Xl] 25 mg PO DAILY Home Medications: Amitriptyline [Elavil] 50 mg PO QAM 04/15/18 [History] Amitriptyline [Elavil] 100 mg PO HS 04/15/18 [History] Omeprazole 20 mg PO DAILY #30 tab 05/07/18 [Rx] Albuterol Sulfate [Albuterol Inhaler] 2 puff IH Q6H PRN 05/16/18 [History] Ondansetron ODT [Zofran ODT] 4 mg SL Q6HR #20 tabairam 06/04/18 [Rx] Prochlorperazine Maleate [Compazine] 10 mg PO Q6HR PRN #30 tablet 06/04/18 [Rx] Dexamethasone [Decadron] 1 tab PO AD #30 tab 07/26/18 [Rx] Mirtazapine [Remeron] 15 mg PO HS #30 tablet 08/05/18 [Rx] Capecitabine [Xeloda] 3 tab PO BID #84 tablet 08/09/18 [Rx] Metoprolol Succinate [Toprol Xl] 25 mg PO DAILY 08/11/18 [History] Zolpidem [Ambien] 5 mg PO HS 08/11/18 [History] Rivaroxaban [Xarelto] 1 dose PO AD 30 Days pack 08/12/18 [Rx] Allergies/Adverse Reactions: Allergy/AdvReac Type Severity Reaction Status Date / Time Medipore Allergy Rash Uncoded 08/11/18 10:50 Date of admission: 08/11/18 17:56 Primary care physician: [facility] Discharging clinician: Dominik Kitchen Anticipated date of discharge: 08/12/18 - Constitutional Vitals: Temp Pulse Resp BP Pulse Ox 98 F 91 20 134/102 97 08/12/18 07:46 08/12/18 07:46 08/12/18 07:46 08/12/18 07:46 08/12/18 09:39 Exam: General: pleasant, without distress HEENT: Head atraumatic, normocephalic, EOMI, PERRL, absent ear discharge or trauma, Moist Mucous Membranes, uvula midline Neck: nontender to palpation, absent lymphadenopathy, Cardiovascualr: Sinus tachycardia with no murmur, absent gallops or rubs, absent pedal edema, radial pulses 2 out of 4 Lungs: Clear to auscultation bilaterally with left lower lobe sounds diminished, not in respiratory distress Abdomen: Soft nontender, nondistended positive bowel sounds, absent hepatomegaly Skin: warm and dry, absent rash, absent open wounds and nodules MSK: absent clubbing, cyanosis, joints without swelling Neuro: Cranial nerves II through XII intact, UE and LE sensation equal bilaterally, UE and LEstrength 5/5, alert oriented 3, Psych: good insight and judgment - Patient Status Disposition: Home, Self-Care Condition: Fair Functional capacity at discharge: independent ambulation Overall status at discharge: patient is progressing back to baseline - Discharge Instructions Instructions: Rivaroxaban (By mouth) Follow Up With: [place],PCP [Primary Care Provider] - 09/09/18 10:30 am Forms: ED Satisfaction Letter Additional Instructions: Follow-up appointments: If there is not an appointment listed below, please call your physician and schedule a follow-up appointment. If you have congestive heart failure and your symptoms return, make an appointment with your physician. Medication List: Carry an up to date list of medications you are taking at all time. We have given you an updated medication list including any new medications that you have been prescribed. Please provide that list to your primary provider - Diet and Activity Activity: increase activity as tolerated Diet: advance to your usual diet <Cale Osorio - Last Filed: 08/12/18 18:13> Orders not resulted at time of discharge: Pending orders 08/11/18 14:45 EKG [ECG 12 lead ECG] [ECG] Stat Date of Encounter: 08/12/18 Hospital course: Mr. Ramos is a 53 year old male - Time Spent with Patient Total time spent providing and/or coordinating discharge services: Date of admission: 08/11/18 17:56 Primary care physician: [facility] - Constitutional Vitals: Temp Pulse Resp BP Pulse Ox 98.2 F 90 16 130/86 95 08/12/18 11:14 08/12/18 11:14 08/12/18 11:14 08/12/18 11:14 08/12/18 11:14 - Attending Attestation I examined this patient and my medical decision-making was reviewed with the Resident Physician. I agree with the documented findings, disposition and treatment plan as described except to the extent set forth below.
[2018-08-12 11:15] VITALS: BP 130/86
[2018-08-12] MEDS ORDERED: *HR* Rivaroxaban 15 MG TABLET PO ONE (11:26)
== END 2018-08-12 14:00 | disposition home or self-care (01) | DRG 176 ==
LOC: 2NNU 14:10 → EMEROOARM 14:10 → SUATTDRO 17:56 → 2NNU 18:23
PROVIDERS: ADMIT Hospitalist; ATTEND Student in an Organized Health Care Education/Training Program

== ENCOUNTER 2021-05-14 16:54 | Inpatient (IN) ==
[2021-05-14] MEDS ORDERED: Acetaminophen 325 MG TABLET PO PRN (18:04)
[2021-05-14] MEDS ORDERED: Naloxone 0.4 MG/ML INJ IVP PRN (18:04)
[2021-05-14 18:13] LABS: Basophils # 0.1 K/mcL (0.0-0.2); Basophils % 0.8 %; Eosinophils # 0.2 K/mcL (0.0-0.6); Eosinophils % 3.9 %; Hematocrit 38.2 % (37.5-50.1); Hemoglobin 12.8 g/dL (12.9-16.9); Immature Granulocytes % 0.3 % (0-4); Lymphocytes # 1.5 K/mcL (0.6-4.6); Lymphocytes % 23.5 %; Mean Corpuscular HGB Conc 33.5 g/dL (31.6-35.5); Mean Corpuscular Hemoglobin 29.9 pg (28.0-33.3); Mean Corpuscular Volume 89.3 fL (83.0-100.0); Mean Platelet Volume 9.1 fL (9.4-12.4); Monocytes # 0.5 K/mcL (0.0-1.3); Monocytes % 7.5 %; Neutrophils # 3.9 K/mcL (1.6-8.9); Platelet Count 210 K/mcL (140-400); Red Blood Count 4.28 M/mcL (4.19-5.50); Red Cell Distribution Width 13.6 % (11.5-14.5); White Blood Count 6.2 K/mcL (4.3-11.1)
[2021-05-14 18:22] LABS: INR 2.1; Prothrombin Time 23.7 Seconds (9.4-12.1)
[2021-05-14 18:25] LABS: Activated Partial Thrombo Time 42.5 Seconds (26.0-36.0)
[2021-05-14 18:31] LABS: Alanine Aminotransferase 15 Units/L (7-52); Albumin/Globulin Ratio 1.7 (1.1-2.2); Alkaline Phosphatase 100 Units/L (34-104); Aspartate Amino Transferase 16 Units/L (13-39); BUN/Creatinine Ratio 8 (6-26); Bilirubin,Total 0.4 mg/dL (0.3-1.0); Blood Urea Nitrogen 7 mg/dL (6-20); Carbon Dioxide 24 mEq/L (23-29); Chloride 105 mEq/L (98-107); Globulin 2.3 g/dL (2.4-3.5); Glucose 112 mg/dL (70-105); Osmolality,Calculated 281 (280-300); Sodium 136 mEq/L (136-145); Total Protein 6.3 g/dL (6.4-8.9); Troponin I < 0.03 ng/mL (< 0.04); eGFR For African Americans > 60 (> 60); eGFR For Non-African Americans > 60 (> 60)
[2021-05-15 07:24] LABS: INR 1.5; Prothrombin Time 16.8 Seconds (9.4-12.1)
[2021-05-15 07:52] LABS: Basophils # 0.1 K/mcL (0.0-0.2); Basophils % 0.8 %; Eosinophils # 0.3 K/mcL (0.0-0.6); Eosinophils % 4.2 %; Hematocrit 38.7 % (37.5-50.1); Hemoglobin 12.8 g/dL (12.9-16.9); Immature Granulocytes % 0.5 % (0-4); Lymphocytes # 1.4 K/mcL (0.6-4.6); Lymphocytes % 22.5 %; Mean Corpuscular HGB Conc 33.1 g/dL (31.6-35.5); Mean Corpuscular Hemoglobin 30.3 pg (28.0-33.3); Mean Corpuscular Volume 91.5 fL (83.0-100.0); Mean Platelet Volume 9.5 fL (9.4-12.4); Monocytes # 0.6 K/mcL (0.0-1.3); Monocytes % 8.6 %; Neutrophils # 4.1 K/mcL (1.6-8.9); Platelet Count 232 K/mcL (140-400); Red Blood Count 4.23 M/mcL (4.19-5.50); Red Cell Distribution Width 13.8 % (11.5-14.5); Segmented Neutrophils % 63.4 %; White Blood Count 6.4 K/mcL (4.3-11.1)
[2021-05-15 08:01] LABS: BUN/Creatinine Ratio 9 (6-26); Blood Urea Nitrogen 8 mg/dL (6-20); Calcium 9.1 mg/dL (8.6-10.3); Carbon Dioxide 26 mEq/L (23-29); Chloride 103 mEq/L (98-107); Glucose 110 mg/dL (70-105); Osmolality,Calculated 283 (280-300); Potassium 4.2 mEq/L (3.5-5.1); Sodium 137 mEq/L (136-145); eGFR For African Americans > 60 (> 60); eGFR For Non-African Americans > 60 (> 60)
[2021-05-15] MEDS ORDERED: ceFAZolin 3,000 MG in Water for inj. (sterile) 30 ML IVP ONE (08:38)
[2021-05-15] MEDS ORDERED: Metoprolol XL (24 HR) Succ 25 MG TAB.ER.24H PO SCH (09:00)
[2021-05-15] MEDS ORDERED: Ammonium Lactate 30 APPL/225 GM BOTTLE TP SCH (09:00)
[2021-05-15] MEDS ORDERED: ELUXADOLINE 75 MG PO SCH (09:00)
[2021-05-15] MEDS ORDERED: Clobetasol Propionate 0.05% 15 GM Cream Tube TP SCH (09:00)
[2021-05-15] MEDS ORDERED: Magnesium Oxide 400 MG TABLET PO SCH (09:00)
[2021-05-15] MEDS ORDERED: Ondansetron 4 MG/2 ML VIAL IVP PRN ×2 (09:47→15:32)
[2021-05-15] MEDS ORDERED: Lidocaine 1% 20 ML MDV ONE (09:55)
[2021-05-15] MEDS ORDERED: *HR* Rocuronium Bromide 50 MG/5 ML VIAL ONE (09:56)
[2021-05-15] MEDS ORDERED: *HR* FentaNYL (PF) 250 MCG/5 ML VIAL ONE (09:56)
[2021-05-15] MEDS ORDERED: *HR* Etomidate 20 MG/10 ML AMPUL IVP ONE (09:56)
[2021-05-15] MEDS ORDERED: Ringers Solution, Lactated 1,000 ML IVC SCH (10:00)
[2021-05-15] MEDS ORDERED: CeFAZolin Syr 3,000MG/30 ML 3,000 MG/30 ML SYRINGE IVPB ONE ×2 (10:14→15:32)
[2021-05-15] MEDS ORDERED: *HR* Midazolam HCl 5 MG/5 ML VIAL IVP ONE (10:25)
[2021-05-15] MEDS ORDERED: *HR* Metoprolol 5 MG/5 ML VIAL IVP ONE ×2 (10:30→11:45)
[2021-05-15] MEDS: *HR* FentaNYL (PF) 100 MCG/2 ML VIAL IVP PRN ×4 (11:10→11:51)
[2021-05-15] MEDS ORDERED: *HR* HYDROmorphone (PF) 1 MG/ML SYRINGE IVP PRN (12:14)
[2021-05-15] MEDS ORDERED: Ketorolac 30 MG/ML VIAL IVP ONE (13:46)
[2021-05-15] MEDS ORDERED: Acetaminophen 325 MG TABLET PO PRN (15:32)
[2021-05-15] MEDS ORDERED: Naloxone 0.4 MG/ML INJ IVP PRN ×2 (15:32)
[2021-05-15] MEDS: *HR* HYDROcodone/Acet 5/325 mg TABLET PO PRN ×2 (15:47→20:49)
[2021-05-15] MEDS: 0.9 % Sodium Chloride 1,000 ML IVC SCH (15:48)
[2021-05-15] MEDS: Gabapentin 300 MG CAPSULE PO SCH ×2 (15:54→20:51)
[2021-05-15] MEDS: *HR* HYDROmorphone (PF) 1 MG/ML SYRINGE IVP PRN ×3 (16:58→23:20)
[2021-05-15] MEDS ORDERED: Metoprolol XL (24 HR) Succ 25 MG TAB.ER.24H PO ONE (17:56)
[2021-05-15] MEDS: Magnesium Oxide 400 MG TABLET PO SCH (20:50)
[2021-05-15] MEDS: ELUXADOLINE 75 MG PO SCH (20:52)
[2021-05-16] MEDS: *HR* HYDROcodone/Acet 5/325 mg TABLET PO PRN ×4 (00:41→22:09)
[2021-05-16] MEDS: *HR* HYDROmorphone (PF) 1 MG/ML SYRINGE IVP PRN (02:34)
[2021-05-16 05:31] LABS: Hematocrit 41.1 % (37.5-50.1); Hemoglobin 13.3 g/dL (12.9-16.9); Mean Corpuscular HGB Conc 32.4 g/dL (31.6-35.5); Mean Corpuscular Hemoglobin 30.3 pg (28.0-33.3); Mean Corpuscular Volume 93.6 fL (83.0-100.0); Mean Platelet Volume 9.3 fL (9.4-12.4); Platelet Count 231 K/mcL (140-400); Red Blood Count 4.39 M/mcL (4.19-5.50); Red Cell Distribution Width 13.6 % (11.5-14.5); White Blood Count 10.9 K/mcL (4.3-11.1)
[2021-05-16] MEDS: 0.9 % Sodium Chloride 1,000 ML IVC SCH (05:37)
[2021-05-16 05:46] LABS: BUN/Creatinine Ratio 11 (6-26); Blood Urea Nitrogen 10 mg/dL (6-20); Calcium 8.6 mg/dL (8.6-10.3); Carbon Dioxide 25 mEq/L (23-29); Chloride 100 mEq/L (98-107); Glucose 121 mg/dL (70-105); Magnesium 1.8 mg/dL (1.6-2.6); Osmolality,Calculated 276 (280-300); Potassium 4.8 mEq/L (3.5-5.1); Sodium 133 mEq/L (136-145); eGFR For African Americans > 60 (> 60); eGFR For Non-African Americans > 60 (> 60)
[2021-05-16] MEDS ORDERED: Metoprolol XL (24 HR) Succ 25 MG TAB.ER.24H PO SCH (09:00)
[2021-05-16] MEDS ORDERED: Metoprolol XL (24 HR) Succ 50 MG TAB.ER.24H PO SCH (09:00)
[2021-05-16] MEDS: Magnesium Oxide 400 MG TABLET PO SCH ×2 (09:18→21:07)
[2021-05-16] MEDS: Gabapentin 300 MG CAPSULE PO SCH ×3 (09:18→21:07)
[2021-05-16] MEDS: ELUXADOLINE 75 MG PO SCH ×2 (09:19→21:08)
[2021-05-16] MEDS: Clobetasol Propionate 0.05% 15 GM Cream Tube TP SCH (09:19)
[2021-05-16] MEDS: Ammonium Lactate 30 APPL/225 GM BOTTLE TP SCH (09:20)
[2021-05-16 11:01] LABS: Bacteria,Urine Few per hpf (None-Few); Bilirubin,Urine Negative (Negative); Blood,Urine Negative (Negative); Clarity,Urine Clear (Clear); Color,Urine Light-Orange (Yellow); Glucose,Urine (UA) Normal (Normal); Hyaline Casts,Urine Many per lpf (None Seen); Ketones,Urine 10 mg/dL (Negative); Leukocyte Esterase,Urine Negative (Negative); Mucus,Urine Many per lpf (None-Few); Nitrite,Urine Negative (Negative); Protein,Urine 70 mg/dL (Neg-Trace); RBC,Urine 0-3 per hpf (0-3); Renal Epithelial Cells,Urine Few per hpf (None-Few); Specific Gravity,Urine > 1.030 (1.010-1.025); Squamous Epithelial Cell,Urine Few per hpf (None-Few); Urobilinogen,Urine Normal (Normal)
[2021-05-16] MEDS ORDERED: Acetaminophen/Butalbital/CaffeineTABLET PO PRN (12:48)
[2021-05-17] MEDS: *HR* HYDROcodone/Acet 5/325 mg TABLET PO PRN ×3 (03:34→20:58)
[2021-05-17 05:11] LABS: Hematocrit 44.2 % (37.5-50.1); Hemoglobin 14.2 g/dL (12.9-16.9); Mean Corpuscular HGB Conc 32.1 g/dL (31.6-35.5); Mean Corpuscular Hemoglobin 29.8 pg (28.0-33.3); Mean Corpuscular Volume 92.7 fL (83.0-100.0); Mean Platelet Volume 9.3 fL (9.4-12.4); Platelet Count 230 K/mcL (140-400); Red Blood Count 4.77 M/mcL (4.19-5.50); Red Cell Distribution Width 13.2 % (11.5-14.5); White Blood Count 11.1 K/mcL (4.3-11.1)
[2021-05-17 05:30] LABS: BUN/Creatinine Ratio 9 (6-26); Blood Urea Nitrogen 8 mg/dL (6-20); Calcium 9.1 mg/dL (8.6-10.3); Carbon Dioxide 25 mEq/L (23-29); Chloride 99 mEq/L (98-107); Glucose 132 mg/dL (70-105); Osmolality,Calculated 276 (280-300); Sodium 133 mEq/L (136-145); eGFR For African Americans > 60 (> 60); eGFR For Non-African Americans > 60 (> 60)
[2021-05-17] MEDS: Magnesium Oxide 400 MG TABLET PO SCH ×2 (08:37→20:59)
[2021-05-17] MEDS: Metoprolol XL (24 HR) Succ 50 MG TAB.ER.24H PO SCH (08:37)
[2021-05-17] MEDS: Gabapentin 300 MG CAPSULE PO SCH (08:38)
[2021-05-17] MEDS: ELUXADOLINE 75 MG PO SCH ×2 (08:44→21:03)
[2021-05-17] MEDS: Ammonium Lactate 30 APPL/225 GM BOTTLE TP SCH (08:45)
[2021-05-17] MEDS: Clobetasol Propionate 0.05% 15 GM Cream Tube TP SCH (08:45)
[2021-05-17] MEDS: 0.9 % Sodium Chloride 1,000 ML IVC SCH ×2 (10:43→20:57)
[2021-05-18 03:29] LABS: Hematocrit 37.9 % (37.5-50.1); Mean Corpuscular HGB Conc 31.9 g/dL (31.6-35.5); Mean Corpuscular Hemoglobin 29.4 pg (28.0-33.3); Mean Platelet Volume 9.2 fL (9.4-12.4); Platelet Count 189 K/mcL (140-400); Red Blood Count 4.12 M/mcL (4.19-5.50); White Blood Count 7.5 K/mcL (4.3-11.1)
[2021-05-18 03:44] LABS: BUN/Creatinine Ratio 11 (6-26); Blood Urea Nitrogen 8 mg/dL (6-20); Calcium 8.3 mg/dL (8.6-10.3); Carbon Dioxide 24 mEq/L (23-29); Chloride 104 mEq/L (98-107); Glucose 120 mg/dL (70-105); Magnesium 1.5 mg/dL (1.6-2.6); Osmolality,Calculated 280 (280-300); Potassium 3.9 mEq/L (3.5-5.1); Sodium 135 mEq/L (136-145); eGFR For African Americans > 60 (> 60); eGFR For Non-African Americans > 60 (> 60)
[2021-05-18 03:45] LABS: Hemoglobin 12.1 g/dL (12.9-16.9)
[2021-05-18 03:58] LABS: Thyroid Stimulating Hormone 8.562 mcIU/mL (0.340-5.600)
[2021-05-18] MEDS ORDERED: Isovue-370 500 ML BOTTLE IVP ONE (08:48)
[2021-05-18] MEDS: Metoprolol XL (24 HR) Succ 50 MG TAB.ER.24H PO SCH (10:07)
[2021-05-18] MEDS: Ammonium Lactate 30 APPL/225 GM BOTTLE TP SCH (10:08)
[2021-05-18] MEDS: Magnesium Oxide 400 MG TABLET PO SCH ×2 (10:08→20:31)
[2021-05-18] MEDS: ELUXADOLINE 75 MG PO SCH ×2 (10:09→21:51)
[2021-05-18] MEDS: Clobetasol Propionate 0.05% 15 GM Cream Tube TP SCH (10:09)
[2021-05-18] MEDS: *HR* HYDROcodone/Acet 5/325 mg TABLET PO PRN ×2 (10:37→21:41)
[2021-05-18] MEDS ORDERED: carvediloL 6.25 MG TABLET PO ONE (18:00)
[2021-05-18 20:27] VITALS: O2SAT 100
[2021-05-19 04:05] LABS: BUN/Creatinine Ratio 9 (6-26); Blood Urea Nitrogen 7 mg/dL (6-20); Calcium 8.8 mg/dL (8.6-10.3); Carbon Dioxide 27 mEq/L (23-29); Chloride 101 mEq/L (98-107); Glucose 126 mg/dL (70-105); Magnesium 1.7 mg/dL (1.6-2.6); Osmolality,Calculated 278 (280-300); Sodium 134 mEq/L (136-145); eGFR For African Americans > 60 (> 60); eGFR For Non-African Americans > 60 (> 60)
[2021-05-19] MEDS ORDERED: Magnesium Sulfate 1 GM/102 ML PIGGYBACK IVPB ONE (07:19)
[2021-05-19] MEDS ORDERED: carvediloL 6.25 MG TABLET PO SCH (08:00)
[2021-05-19] MEDS: Magnesium Oxide 400 MG TABLET PO SCH (09:21)
[2021-05-19] MEDS: *HR* HYDROcodone/Acet 5/325 mg TABLET PO PRN (09:21)
[2021-05-19] MEDS: Clobetasol Propionate 0.05% 15 GM Cream Tube TP SCH (09:22)
[2021-05-19] MEDS: ELUXADOLINE 75 MG PO SCH (09:22)
[2021-05-19] MEDS: Ammonium Lactate 30 APPL/225 GM BOTTLE TP SCH (09:22)
[2021-05-19 11:10] VITALS: BP 155/104; TEMP 98.2
[2021-05-19 14:46] VITALS: PULSE 99
== END 2021-05-19 14:40 | disposition home or self-care (01) | DRG 271 ==
LOC: 2NENU 16:54 → EMEROOARM 16:54 → SUATTDRO 19:11 → 2NENU 20:36 → 2NNU 05-15 14:04
PROVIDERS: ADMIT Internal Medicine; ATTEND Internal Medicine